=== PATIENT | female | born 2005 | race Hispanic/Latino ===

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

== ENCOUNTER 2024-01-31 01:27 | Inpatient (IN) | payer SELFPAY ==
[2024-01-31] VITALS (56 sets, daily range): BP systolic 90–135; BP diastolic 45–82; PULSE 84–144; RESP 13–28; TEMP 98.2–100.6; O2SAT 99–100
[~2024-01-31] VITALS: Ht 147.3 cm; Wt 60.8 kg
[2024-01-31 02:29] LABS: APPEARANCE,URINE CLEAR (CLEAR); BILIRUBIN,URINE NEGATIVE (NEGATIVE); COLOR,URINE YELLOW (YELLOW); GLUCOSE, URINE (UA) NEGATIVE (NEGATIVE); KETONES,URINE NEGATIVE (NEGATIVE); LEUKOCYTE ESTERASE ,URINE NEGATIVE Leu/uL (NEGATIVE); NITRATE,URINE NEGATIVE (NEGATIVE); OCCULT BLOOD,URINE NEGATIVE (NEGATIVE); PH,URINE 6.5 (5.0-8.0); PROTEIN,URINE 30 mg/dL (NEGATIVE); UROBILINOGEN,URINE >=8.0 mg/dL (0.2-1.0)
[2024-01-31 02:38] LABS: ADD UA MICROSCOPIC YES
[2024-01-31 02:39] LABS: AMPHET/METH SCREEN,URINE NEGATIVE (NEGATIVE); BARBITURATE SCREEN, URINE NEGATIVE (NEGATIVE); BENZODIAZEPINES SCREEN,URINE NEGATIVE (NEGATIVE); CANNABINOID SCREEN,URINE NEGATIVE (NEGATIVE); COCAINE SCREEN,URINE NEGATIVE (NEGATIVE); OPIATE SCREEN,URINE NEGATIVE (NEGATIVE); PHENCYCLIDINE SCREEN,URINE NEGATIVE (NEGATIVE)
[2024-01-31 02:44] LABS: MUCUS,URINE RARE LPF (None Seen); SQUAMOUS EPITHELIAL CELL,UR MOD /HPF (0-2)
[2024-01-31] MEDS: CELESTONE SOLUSPAN 6 MG/ML 5ML VIAL IM SCH (02:59)
[2024-01-31] MEDS: LACTATED RINGERS 1000ML IV PRN (04:31)
[2024-01-31] MEDS: cefTRIAXone 1G VIAL IVPB ONE (08:58)
[2024-01-31] MEDS ORDERED: AMPICILLIN 2GM+NS 100ML 100 ML IV ONE (09:30)
[2024-01-31] MEDS: DiphenhydrAMINE HCL 50 MG/ML VIAL ONE (09:39)
--- NOTE | 2024-01-31 09:42 | NUR ---
SOB COMPLAINT PT COMPLAINING OF SOB. SPO2 AT 98%. LABOR BREATHING NOTED. NONREBREATHER APPLIED TO PATIENT. HEAD OF BED ELEVATED.
--- NOTE | 2024-01-31 09:43 | NUR ---
RAPID RESPONSE CODE WAS CALLED PT COMPLAINING OF SOB AND UNABLE TO SWALLOW. LABORED BREATHING NOTED. LUNG WERE CLEAR. TONGUE DEPRESSOR USED TO CHECK THROAT. NO SWELLING TO THROAT NOTED.
--- NOTE | 2024-01-31 09:44 | NUR ---
RAPID RESPONSE TEAM ARRIVED REPORT GIVEN TO FRANK JOHNSON MARIA, RN - ENGINEERING JOB TITLES, JUAN RN - TECHNICAL DESIGNER, UYEN, RN - OR NURSE.
--- NOTE | 2024-01-31 09:44 | NUR ---
DR. CAITLYN HERNANDEZ MD WAS NOTIFIED BY RE CHERRY AND INFORMED OF PT CONDITION AND CODE. GAVE ORDERS TO RE CHERRY FOR BENADRYL 50MG IVP X1 AND DEXAMETHOSONE 4MG X1 DOSE.
--- NOTE | 2024-01-31 09:44 | NUR ---
BREATHING TREATMENT TREATMENT GIVEN BY FRANK JOHNSON. SEE EMAR
[2024-01-31] MEDS: dexaMETHasone SOD PHOSPHATE 4 MG/ML 1ML VIAL ONE (09:49)
--- NOTE | 2024-01-31 10:00 | NUR ---
PSYCHIATRIC SECRETARY STARTED PT CONNECTED TO PSYCHIATRIC SECRETARY BY BRENNON MARTINEZ - MORTGAGE LOAN FUNDER
[2024-01-31 10:04] LABS: BASOPHILS # (AUTO) 0.01 K/uL (0.00-0.20); BASOPHILS % (AUTO) 0.1 % (0.0-5.0); HEMATOCRIT 31.7 % (36-48); IMMATURE GRANULOCYTE ABSOLUTE 0.08 K/uL (0-1); LYMPHOCYTES # (AUTO) 0.9 K/uL (1.0-4.8); LYMPHOCYTES % (AUTO) 7.4 % (21.0-51.0); MEAN CORPUSCULAR HEMOGLOBIN 29.3 pg (27.0-33.0); MEAN CORPUSCULAR HGB CONC 33.1 g/dL (32.0-36.0); MEAN CORPUSCULAR VOLUME 88.5 fL (80-100); MONOCYTES # (AUTO) 0.2 K/uL (0.1-1.0); MONOCYTES % (AUTO) 1.5 % (3.0-13.0); NEUTROPHILS # (AUTO) 10.4 K/uL (1.8-7.7); NEUTROPHILS % (AUTO) 90.3 % (40.0-77.0); PLATELET COUNT (AUTO) 212 K/uL (130-400); RED BLOOD CELL COUNT(AUTO) 3.58 MIL/uL (4.00-5.50); RED CELL DISTRIBUTION WIDTH 13.2 % (11.0-15.5); WHITE BLOOD COUNT (AUTO) 11.6 K/uL (4.8-10.8)
--- NOTE | 2024-01-31 10:06 | NUR ---
EKG ORDERED AND COMPLETED BY RAPID RESPONSE GARMENT MANUFACTURING SUPERVISOR. NORMAL SINUS RHYTHM REPORTED
--- NOTE | 2024-01-31 10:07 | NUR ---
DR. BRADY CALLED MD WAS [facility] PT DID NOT GET ANY RELIEF TO CHIEF COMPLAINT. [facility] MD FHT STABLE WITH MODERATE VARIABILITY AND PT STILL STEPHANIE. ASKED MD IF HE COULD COME IN TO SEE PT. GAVE ORDERS FOR HOSPITALIST CONSULT. DR. BRADY [facility] HE WOULD STOP BY LATER TODAY TO SEE THE PT. BENJAMIN, RN - ECONOMICS PROFESSOR NOTIFIED OF CONSULT REQUEST AND SHE CALLED HOSPITALIST NECK FITTER.
--- NOTE | 2024-01-31 10:10 | NUR ---
DR. Jasper RAVI IN ROOM PROVIDED REPORT TO MD ON PT CURRENT STATUS AND LAST MEDICATIONS GIVEN. HE GAVE ORDERS FOR NS BOLUS 1L AND CRITICAL CARE TEAM CONSULT.
--- NOTE | 2024-01-31 10:11 | EKG ---
[facility] Test Date: 2024-01-31 Test Time: 10:08:37 Pat Name: LAUREL OLIVA Department: [facility] Room: 208 Gender: F Delivery Route Driver: [id number] : 2005 Requested By: KARY BRADY Order Number: [id number] Reading MD: Stacy Lewis Measurements Intervals [place] Rate: 132 P: 51 MA: 108 QRS: 16 QRSD: 70 T: 26 QT: 301 QTc: 448 Interpretive Statements Sinus tachycardia Nonspecific T abnormalities, anterior leads No previous ECG available for comparison Electronically Signed On 01-31-2024 17:35:19 INSPECTION CLERK by Stacy Lewis Please click the below link to view image of tracing.
--- NOTE | 2024-01-31 10:16 | NUR ---
CHEST XRAY ORDERED BY DR. RAVI. MD GAVE ORDERS FOR SOLUMEDROL 125MG IV X1 DOSE. ORDERS CONFIRMED AND ENTERED
--- NOTE | 2024-01-31 10:18 | NUR ---
Elizabeth CARDENAS, ICU SETUP OPERATOR ARRIVED TO UNIT SETUP OPERATOR WAS INFORMED OF PT STATUS AND CHEIF COMPLAINT.
[2024-01-31 10:19] LABS: INR <= 0.93 (0.85-1.15); PROTHROMBIN TIME 9.7 SEC (9.6-11.6)
[2024-01-31 10:20] LABS: PARTIAL THROMBOPLASTIN TIME 25.6 SEC (26.3-35.5)
--- NOTE | 2024-01-31 10:23 | NUR ---
PEPCID ORDERED DR. RAVI GAVE ORDERS FOR PEPCID 40MG IVP X1 DOSE. ORDERS CONFIRMED AND ENTERED.
--- NOTE | 2024-01-31 10:25 | NUR ---
SOLUMEDROL 125MG IVP GIVEN BY BRENNON MARTINEZ HIGH SCHOOL TEACHER ORDERED BY
--- NOTE | 2024-01-31 10:25 | NUR ---
PEPCID 40MG IVP GIVEN BY Tamie MEIER RN. PT TOLERATED MEDICATION
[2024-01-31] MEDS ORDERED: 0.9%NACL 1000ML 1,000 ML IV SCH ×2 (10:27→10:30)
[2024-01-31 10:33] LABS: ABG BASE EXCESS -5.3 mmol/L (-2.0-3.0); ABG HCO3 18.8 mmol/L (21.0-28.0); ABG OXYGEN SATURATION 95.3 % (94.0-98.0); ABG PCO2 32 mmHg (32-45); ABG PH 7.386 (7.350-7.450); CARBON MONOXIDE 0.3 % (0.5-1.5); HHb 4.7; PO2, ARTERIAL BG 80.8 mmHg (83.0-108.0); VENT MODE, BG NRM (ROOM AIR)
[2024-01-31 10:38] LABS: CREATININE 0.5 mg/dL (0.5-1.0); POTASSIUM 4.3 mmol/L (3.5-5.1)
[2024-01-31] MEDS: RACEPINEPHRINE HCL 2.25% 0.5 ML NEB SOLN ONE (10:40)
--- NOTE | 2024-01-31 10:42 | CONS ---
[facility] CONSULTATION NOTE Date Patient Seen: Jan 31, 2024 Time of Visit: 10:42 Supervising Physician: Alexander Gabriel MD Reason for Consultation: critical care management , allergic reaction Primary Care Physician: Tato Chu MD Outpatient Specialists: Krysta Baird MD Inpatient Consults: Misbah Brady MD , Gadiel Maurer BIS. Dr Handy PROBLEM LIST: Severe sepsis, POA Acute hypoxemic respiratory failure, not POA Severe allergic reaction to Rocephin with concerns for impending anaphylaxis, not POA Lactic acidosis, POA Urinary tract infection, POA Active at 35 weeks, POA Leukocytosis, POA Normocytic anemia, POA HPI: This is a 18-year-old female 1, currently 35 weeks admitted into L and D for evaluation of lower abdominal pain. She has been seen by Obstetrics Service who is primary. Rapid response was called earlier this morning for respiratory distress after completing administration of Rocephin1 g IV. As per primary L&D RN patient was admitted overnight for reports of dysuria, lower abdominal pain frequent urinations and concerns of urinary tract infection. She received her dose of Rocephin1 g IV Alicia morning and became tachypneic and tachycardic. Patient reported and H in the back of her throat and having trouble breathing. She received a dose of racemic epinephrine nebulizer,4 mg of dexamethasone, 50 mg IM Benadryl, a L of LR. We were consulted for critical care management by catalyst team. On assessment of patient she was slightly Heparin ventilating on non-rebreather mask at 100%, tachycardic slightly anxious. No stridor auscultated to upper airway, no wheezing noted to all lobes bilaterally. Patient with no apparent rash, dips swelling or eyelid swelling. In mouth inspection Mallampati of III, but no obvious tongue swelling. Patient reports some shortness of breath, sinus tachycardia in the 120s, heart rate 132 on toco monitor. Patient is Saturating 99-100% mild respiratory distress noted. WBCs this morning were remarkable for white count of 11.6 with neutrophils of 90.3 H&H is 10.5/31.7 ESR is 45. Chemistry unremarkable, [id number] mg/dL alkaline [id number] albumin 2.8 Procalcitonin less than 0.05. On chest x-ray prominent interstitial markings are seen with possible superimposed infiltrates. Pending 2D echo and bilateral lower extremity venous Doppler. PAST MEDICAL HX: None [id number] weeks PAST SURGICAL HX: noncontributory SOCIAL HISTORY: No tobacco, ETOH, or illicit drug use Coded Allergies: Cephalosporins (Verified Allergy, Severe, 01/31/24) Penicillins (Verified Adverse Reaction, Severe, 01/31/24) REVIEW OF SYSTEMS: Const: Yes for subjective fevers, fatigue, weight gain due to Eyes:[ no recent vision problems] ENT: Yes for sore throat, no congestion or ear pain C/V: [no chest pain, palpitations or edema] Resp: Yes for shortness of breath, no cough no wheezing GI: Reports lower abdominal pain, no nausea vomiting or diarrhea : Reports dysuria and urinary urgency and frequency M/S: [No joint or pain swelling] Skin: [No rash] Neuro: [no headache, focal numbness, or weakness, dizziness or seizures] Psych: [no depression or anxiety] Heme: [no abnormal bruising or bleeding] Lymph: [no swollen glands] PHYSICAL EXAM: GENERAL: alert, weak, awake oriented x 3 HEENT: EOMI, Sclera non icteric, moist mucosa NECK: Supple, no JVD, trachea midline LUNGS: Diminished breath sounds bilaterally. No wheezes, no stridor auscultated to upper airway HEART: Irregular Tachycardic rate and rhythm. Normal S1 and S2, without murmurs ABD: Abdomen soft, nontender. Bowel sounds present,35 weeks EXT: No clubbing cyanosis or edema NEURO: Alert and oriented to person, follows commands Vital Signs (last 8hr) Date Time Temp Pulse Resp B/P (MAP) Pulse Ox O2 Delivery O2 Flow Rate FiO2 01/31/24 09:53 144 18 LABS: Hematology Labs: Test 01/31/24 09:52 Range/Units White Blood Count 11.6 H 4.8-10.8 K/uL Red Blood Count 3.58 L 4.00-5.50 MIL/uL Hemoglobin 10.5 L 12.0-16.0 g/dL Hematocrit 31.7 L 36-48 % Mean Corpuscular Volume 88.5 80-100 fL Mean Corpuscular Hemoglobin 29.3 27.0-33.0 pg Mean Corpuscular Hemoglobin Concent 33.1 32.0-36.0 g/dL Red Cell Distribution Width 13.2 11.0-15.5 % Platelet Count 212 130-400 K/uL Mean Platelet Volume 10.9 H 7.5-10.5 fL Immature Granulocyte % (Auto) 0.7 0-1 % Neutrophils (%) (Auto) 90.3 H 40.0-77.0 % Lymphocytes (%) (Auto) 7.4 L 21.0-51.0 % Monocytes (%) (Auto) 1.5 L 3.0-13.0 % Eosinophils (%) (Auto) 0.0 0.0-8.0 % Basophils (%) (Auto) 0.1 0.0-5.0 % Neutrophils # (Auto) 10.4 H 1.8-7.7 K/uL Lymphocytes # (Auto) 0.9 L 1.0-4.8 K/uL Monocytes # (Auto) 0.2 0.1-1.0 K/uL Eosinophils # (Auto) 0.00 0.00-0.70 K/uL Basophils # (Auto) 0.01 0.00-0.20 K/uL Absolute Immature Granulocyte (auto 0.08 0-1 K/uL Nucleated Red Blood Cells 0.0 0.0-0.19 % White Cell Morphology Comment See comments Chemistry Labs: Test 01/31/24 09:52 Range/Units Sodium Level 137 136-145 mmol/L Potassium Level 4.3 3.5-5.1 mmol/L Chloride Level 102 101-111 mmol/L Carbon Dioxide Level 22 21-32 mmol/L Blood Urea Nitrogen 7 7-18 mg/dL Creatinine 0.5 0.5-1.0 mg/dL Glomerular Filtration Rate Calc 138 >90 mL/min Random Glucose 112 H 70-105 mg/dL Lactic Acid Level 2.5 0.8-2.5 mmol/L Total Calcium 9.5 8.5-10.1 mg/dL Coagulation Labs: Test 01/31/24 09:52 Range/Units Prothrombin Time 9.7 9.6-11.6 SEC Prothromb Time International Ratio <= 0.93 0.85-1.15 Activated Partial Thromboplast Time 25.6 L 26.3-35.5 SEC DIAGNOSTICS / RADIOLOGY RESULTS: IMAGING REPORT Signed PATIENT: LAUREL OLIVA MR#: [id number] : 2005 SEX: F AGE: 18 LOCATION: 2BH ORDER 1002 STATUS: ADM IN REPORT#: [id number] SERVICE 1000 REASON: SOB, TACHYCARDIA ORDERING PHYSICIAN: KRAY BRADY MD PROCEDURE: CXR1VW - CHEST 1VW CHEST 1VW HISTORY: Shortness of breath, tachycardia COMPARISON: None FINDINGS: A frontal projection of the chest was obtained. Prominent interstitial markings are seen with possible superimposed infiltrates. The heart is normal in size. Mild degenerative changes are seen. No evidence of aortic calcification is seen. IMPRESSION: 1. Prominent interstitial markings are seen with possible superimposed infiltrates. DICTATED BY: TONY CAUSEY MD DATE: 01/31/24 132 ELECTRONICALLY SIGNED BY: TONY CAUSEY MD DATE: 01/31/24 1328 PLAN Continurous monitoring with LnD nurse at bedside per OB NEURO: Minimize central acting medications as possible. Fall Precautions. Well lighted room through the day and minimize interruptions through the night to prevent acute delirium. PULMONARY: Supplemental 02 as needed Titrate Fio2 to keep Spo2 > or = 92% DuoNebs and CPT as needed IS hourly while awake for pulmonary hygiene Out of bed to chair as tolerated VAP Bundle Wean O2 and maintain O2 sats above 92% CARDIOVASCULAR: Follow hemodynamics. Titrate vasopressor to keep MAP >65 or systolic blood pressure >95mmHg ICU continuous cardiac monitoring Drips: Isotonic fluids 30 mL/kilogram x1 LINES: PIV GI & NUTRITION: Continue nutritional support Aspirations precautions Prokinetic agents and laxatives as needed KIDNEYS & ELECTROLYTES: Strict monitoring of intake and output Daily weights Avoid nephrotoxic agents Monitor electrolytes and replace as needed Goal urine output of 30mL/hr or 0.5mL/kg/hr Urine output: [ ] Fluid Balance: [ ] ENDOCRINE: Maintain blood glucose between 100-180 at all times. Insulin sliding scale for blood glucose management INFECTIOUS DISEASE: Trend temperature. Cota-culture if febrile. Micro: [ ] Blood cultures Urine cultures COVID and influenza swab Strep throat swab Chlamydia and gonorrhea urine- Antibiotics: Discontinue Rocephin NS an allergy for cephalosporins Levaquin Aztreonam Per ID HEMATOLOGY & COAGULATION: Monitor H&H. Keep Hgb > 7 Transfuse 1 unit of PRBC for Hgb < 7 Transfuse 1 pack of platelets of platelets < 20, 000 Watch for any signs and symptoms of bleeding SKIN: Pressure ulcer prevention per facility protocol Rehab: PT/OT Prophylaxis: GI: Pepcid DVT: SCDs Code Status: Full Resuscitation Disposition: ICU Other: Total patient care time exceeds 50 minutes excluding all procedures. Case was discussed and seen with my supervising physician. The above plan was formulated and agreed upon. CARMEN CARDENAS [facility] Jan 31, 2024 10:42
[2024-01-31 10:43] LABS: ALBUMIN 2.8 g/dL (3.5-5.0); BILIRUBIN,TOTAL 0.3 mg/dL (0.2-1.0); URIC ACID 4.3 mg/dL (2.6-7.2)
[2024-01-31 10:54] LABS: HIV 1&2 ANTIBODY Non-Reactive (Negative); HIV-1 p24 Antigen Non-Reactive (Negative)
[2024-01-31] MEDS: 0.9%NACL 1000ML 1,000 ML IV SCH (11:00)
[2024-01-31] MEDS ORDERED: IpraTROPium/alBUTERol SULFATE 3 ML SOLUTION IH PRN (11:00)
[2024-01-31] MEDS ORDERED: acetaMINOPHEN 325 MG TAB PO PRN (11:00)
[2024-01-31 11:04] LABS: B-TYPE NATRIURETIC PEPTIDE 18 pg/mL (0-100)
--- NOTE | 2024-01-31 11:04 | NUR ---
TRANSFER TO ICU PT TRANSFERRED TO ICU VIA BED IN STABLE CONDITION.
--- NOTE | 2024-01-31 11:08 | NUR ---
PT ARRIVED TO ICU ROOM 208 IN STABLE CONDITION. REPORT GIVEN TO BRENNON HOWARD. PT CONNECTED TO MONITOR.
--- NOTE | 2024-01-31 11:10 | NUR ---
pt arrived to icu, with LD nurse at bedside, FHM at bedside and placed on pt with heat beat audible. pt arousable to voice, following commands, nods yes to her throat feeling better. received bedside report from nurse annmarie rn. pt running NS bolus via left wrist IV. technology advisor at bedside. v/s stable, NRB mask at 15 lpm.
[2024-01-31] MEDS: Solu-medROL 125MG VIAL IVP ONE (11:27)
[2024-01-31] MEDS: LACTATED RINGERS IV ONE (11:27)
[2024-01-31] MEDS: FAMOTIDINE 20MG VIAL IV ONE ×3 (11:27)
--- NOTE | 2024-01-31 11:32 | NUR ---
DR. BRADY WAS NOTIFIED PT WAS TRANSFERRED TO ICU
[2024-01-31 11:36] LABS: FIBRINOGEN 524 mg/dL (180-350)
[2024-01-31 11:46] LABS: ERYTHROCYTE SEDIMENTATION RATE 45 MM/HR (0-20)
--- NOTE | 2024-01-31 12:01 | CONS ---
[facility] CONSULTATION NOTE Date of Service: Jan 31, 2024 Reason for Consultation: [ respiratory distress, rapid response ] Requesting Physician: [Dr. Soria ] HISTORY OF PRESENT ILLNESS: Date of service: 01/31/2024 18 year old female who is currently 35 weeks currently admitted in labor and delivery for evaluation of contractions. Patient is being followed by obstetric service who is the primary service for this patient. I was called to evaluate this patient emergently for a rapid response was called on this patient due to severe respiratory distress. Patient was admitted overnight was reporting having dysuria, frequent urinary urgency with concerns for developing urinary tract infection. Patient received a dose of 1 g of IV Rocephin close to 9:00 a.m. and per nursing, patient developed severe respiratory distress with tachypnea. Nursing staff at bedside, denies any rash, diarrhea, stridor or wheezing. Per nursing, there is no significant lip swelling or tongue swelling noted. Patient reports having hard time breathing and appears very labored. Patient already received a dose of racemic epinephrine, 4 mg of dexamethasone, 50 mg of intramuscular Benadryl, 500 bolus of lactated Ringer's prior to my evaluation. Given concerns for severe allergic reaction, I placed bedside orders for patient to be given Solu-Medrol 125 mg and there is concerns that patient may develop into anaphylaxis reaction soon, we will monitor closely for intramuscular epinephrine to be given in case of nonresolving symptoms. Patient will be transferred to ICU for closer monitoring for at least 24 hours. Lactic acid is also noted to be elevated, patient may be developing possible sepsis as well. Discussed with Infectious Disease, with Dr. Handy, we will start this patient on combination IV aztreonam/Levaquin. REVIEW OF SYSTEMS: Thorough review of system could not be elicited due to labored breathing, patient reports having acute shortness of breath with no associated wheezing, rhonchi, stridor. Denies chest pain or focal neurologic symptoms. PAST MEDICAL HISTORY: Active intrauterine at 35 weeks PAST SURGICAL HISTORY: Denies previous surgical history PAST SOCIAL HISTORY: Independent with ADLs and IADLs FAMILY HISTORY: Denies pertinent family history Allergies: Allergies have been updated to include cephalosporins and penicillin Coded Allergies: Cephalosporins (Verified Allergy, Severe, 01/31/24) Penicillins (Verified Adverse Reaction, Severe, 01/31/24) PHYSICAL EXAM GENERAL APPEARANCE: The patient is awake, patient is tachypneic and is in moderate respiratory distress. No obvious skin rash noted NEUROLOGICAL: Cranial nerves II-XII grossly intact. Motor is 5/5 in bilateral upper and lower extremities proximal to distal. No sensory deficits. HEENT: Face is symmetric. Pupils are equal and reactive. Extraocular movements are intact. NECK: Supple. No JVD. No thyromegaly. No submental, submandibular, pre-/post auricular, occipital or supraclavicular lymphadenopathy. CHEST: Normal chest expansion. No Telemetry. LUNGS: Absence of any rales, rhonchi or any wheezing. No stridor CARDIOVASCULAR: Regular. S1 and S2 normal. tachycardic with heart rate in the 120's ABDOMEN: Soft, nontender, and nondistended. There is no rebound, voluntary guarding, or rigidity. : Deferred. No Acevedo. EXTREMITIES: Non-edematous and not cyanotic. No clubbing. Good capillary refill. SKIN: No skin breakdown. Vital Sign (Last 24 Hours) 01/31/24 01/31/24 01/31/24 01:32 09:45 09:53 Temp 97.2 Pulse 144 Resp 18 B/P (MAP) 109/59 Pulse Ox 99 O2 Delivery Non Rebreather FiO2 100 LABS: Laboratory: Test 01/31/24 10:34 01/31/24 10:31 01/31/24 09:52 01/31/24 02:00 Range/Units Erythrocyte Sedimentation Rate 45 H 0-20 MM/HR B-Type Natriuretic Peptide 18 0-100 pg/mL Blood Gas Specimen Type Arterial Arterial Blood pH 7.386 7.350-7.450 Arterial Blood Partial Pressure CO2 32 32-45 mmHg Arterial Blood Partial Pressure O2 80.8 L 83.0-108.0 mmHg Arterial Blood HCO3 18.8 L 21.0-28.0 mmol/L Arterial Blood Oxygen Saturation 95.3 94.0-98.0 % Arterial Blood Base Excess -5.3 L -2.0-3.0 mmol/L Hemoglobin (Blood Gas) 11.6 L 12.0-16.0 g/dL Sodium (Blood Gas) 137 136-145 MMOL/L Bedside Potassium (Blood Gas) 4.2 3.4-4.5 MMOL/L Bedside Chloride (Blood Gas) 105 98-107 MMOL/L Bedside Glucose (Blood Gas) 115 H 65-95 MG/DL Bedside Ionized Calcium (Blood Gas) 1.24 1.15-1.33 MMOL/L Bedside Lactic Acid (Blood Gas) 3.36 *H 0.36-0.75 MMOL/L Blood Gas Temperature 37.0 35.5-37.0 CELSIUS Blood Gas Flow-by 15.00 0.00-15.00 L/min Blood Gas Vent Mode NRM ROOM AIR FiO2 100.0 % Blood Gas Specimen Comment RR,CARMEN-DOBIE MAN White Blood Count 11.6 H 4.8-10.8 K/uL Red Blood Count 3.58 L 4.00-5.50 MIL/uL Hemoglobin 10.5 L 12.0-16.0 g/dL Hematocrit 31.7 L 36-48 % Mean Corpuscular Volume 88.5 80-100 fL Mean Corpuscular Hemoglobin 29.3 27.0-33.0 pg Mean Corpuscular Hemoglobin Concent 33.1 32.0-36.0 g/dL Red Cell Distribution Width 13.2 11.0-15.5 % Platelet Count 212 130-400 K/uL Mean Platelet Volume 10.9 H 7.5-10.5 fL Immature Granulocyte % (Auto) 0.7 0-1 % Neutrophils (%) (Auto) 90.3 H 40.0-77.0 % Lymphocytes (%) (Auto) 7.4 L 21.0-51.0 % Monocytes (%) (Auto) 1.5 L 3.0-13.0 % Eosinophils (%) (Auto) 0.0 0.0-8.0 % Basophils (%) (Auto) 0.1 0.0-5.0 % Neutrophils # (Auto) 10.4 H 1.8-7.7 K/uL Lymphocytes # (Auto) 0.9 L 1.0-4.8 K/uL Monocytes # (Auto) 0.2 0.1-1.0 K/uL Eosinophils # (Auto) 0.00 0.00-0.70 K/uL Basophils # (Auto) 0.01 0.00-0.20 K/uL Absolute Immature Granulocyte (auto 0.08 0-1 K/uL Nucleated Red Blood Cells 0.0 0.0-0.19 % White Cell Morphology Comment See comments Prothrombin Time 9.7 9.6-11.6 SEC Prothromb Time International Ratio <= 0.93 0.85-1.15 Activated Partial Thromboplast Time 25.6 L 26.3-35.5 SEC Fibrinogen 524 *H 180-350 mg/dL Sodium Level 137 136-145 mmol/L Potassium Level 4.3 3.5-5.1 mmol/L Chloride Level 102 101-111 mmol/L Carbon Dioxide Level 22 21-32 mmol/L Blood Urea Nitrogen 7 7-18 mg/dL Creatinine 0.5 0.5-1.0 mg/dL Glomerular Filtration Rate Calc 138 >90 mL/min Random Glucose 112 H 70-105 mg/dL Lactic Acid Level 2.5 0.8-2.5 mmol/L Uric Acid 4.3 2.6-7.2 mg/dL Total Calcium 9.5 8.5-10.1 mg/dL Total Bilirubin 0.3 0.2-1.0 mg/dL Aspartate Amino Transf (AST/SGOT) 31 10-37 U/L Alanine Aminotransferase (ALT/SGPT) 28 12-78 U/L Alkaline Phosphatase 235 H 50-136 U/L Total Protein 7.0 6.0-8.3 g/dL Albumin 2.8 L 3.5-5.0 g/dL Procalcitonin < 0.05 L 0.05-0.5 ng/mL HIV (1&2) Antibody Non-Reactive Negative HIV P24 Antigen, Qualitative Non-Reactive Negative Urine Color YELLOW YELLOW Urine Appearance CLEAR CLEAR Urine pH 6.5 5.0-8.0 Urine Specific [place] 1.029 1.001-1.031 Urine Protein 30 H NEGATIVE mg/dL Urine Glucose (UA) NEGATIVE NEGATIVE mg/dL Urine Ketones NEGATIVE NEGATIVE mg/dL Urine Occult Blood NEGATIVE NEGATIVE Urine Nitrate NEGATIVE NEGATIVE Urine Bilirubin NEGATIVE NEGATIVE mg/dL Urine Urobilinogen >=8.0 H 0.2-1.0 mg/dL Urine Leukocyte Esterase NEGATIVE NEGATIVE Chin/uL Urine RBC 2-5 H 0-1 /HPF Urine WBC 2-5 H 0-1 /HPF Urine Squamous Epithelial Cells MOD 0-2 /HPF Urine Bacteria None None Seen /HPF Urine Opiates Screen NEGATIVE NEGATIVE Urine Barbiturates Screen NEGATIVE NEGATIVE Urine Phencyclidine Screen NEGATIVE NEGATIVE Urine Amphetamines Screen NEGATIVE NEGATIVE Urine Benzodiazepines Screen NEGATIVE NEGATIVE Urine Cocaine Screen NEGATIVE NEGATIVE Urine Marijuana (THC) Screen NEGATIVE NEGATIVE DIAGNOSTICS / RADIOLOGY: Chest x-ray at bedside shows no focal infiltrates ASSESSMENT: Acute hypoxemic respiratory failure, not POA Severe allergic reaction to Rocephin with concerns for impending anaphylaxis, not POA Lactic acidosis, POA Urinary tract infection, POA Concerns for developing sepsis from UTI, POA Active at 35 weeks, POA Leukocytosis, POA Normocytic anemia, POA PLAN: Patient will be transferred to ICU Patient initially received bolus of IV fluids, dexamethasone, Benadryl, and racemic epinephrine with no significant improvement of symptoms and significant respiratory distress. After receiving IV Solu-Medrol and IV Pepcid, breathing has improved significantly, no significant stridor or wheezing or urticarial rash noted for this patient and patient feels much better Patient will receive sepsis bolus of fluids with LR and maintenance IV fluids of normal saline Discussed with Infectious Disease, Dr. Handy and pharmacy, given concerns of developing UTI, we will start patient on Levaquin/aztreonam Monitor lactic acid trend closely Chest x-ray shows no focal infiltrates, we will follow up urine culture, and blood culture Monitor if patient closely in telemetry today, continue with close monitoring, continue with obstetric care by primary obstetric service Appreciate assistance of critical care on this patient All labs will be repeated in the morning, we will follow up 2D echocardiogram and venous ultrasound DVT prophylaxis with SCDs, continue GI prophylaxis with Pepcid Critical care minutes: 45 minutes Plan of care was discussed with patient at bedside, YULY Turk MD, MD Jan 31, 2024 12:01
[2024-01-31 12:09] LABS: HEMOGLOBIN A1C 5.9 % (4.0-6.0)
--- NOTE | 2024-01-31 13:28 | HMCIMG ---
CHEST 1VW HISTORY: Shortness of breath, tachycardia COMPARISON: None FINDINGS: A frontal projection of the chest was obtained. Prominent interstitial markings are seen with possible superimposed infiltrates. The heart is normal in size. Mild degenerative changes are seen. No evidence of aortic calcification is seen. IMPRESSION: 1. Prominent interstitial markings are seen with possible superimposed infiltrates.
[2024-01-31 13:30] LABS: MAGNESIUM 1.6 mg/dL (1.80-2.40); THYROID STIMULATING HORMONE 0.78 uIU/mL (0.36-3.74)
[2024-01-31] MEDS ORDERED: AMPICILLIN 1GM+NS 50ML 50 ML IV SCH (13:30)
[2024-01-31] MEDS: SODIUM CHLORIDE 3% FOR INHALATION 4 ML/AMP VIAL.NEB IH ONE (14:29)
[2024-01-31] MEDS: AZTREONAM 2 GM VIAL IVPB SCH ×2 (15:21→20:48)
[2024-01-31 15:29] LABS: COVID19 (SARS ANTIGEN RAPID) PRESUMPTIVE NEGATIVE (NEGATIVE)
[2024-01-31 15:31] LABS: INFLUENZA TYPE A Negative For Type A (NEGATIVE); INFLUENZA TYPE B Negative For Type B (NEGATIVE)
[2024-01-31 15:55] LABS: RAPID GROUP A STREP positive (NEGATIVE)
[2024-01-31] MEDS: MAGNESIUM 2GM PREMIX 50ML 50 ML IV PRN (16:48)
--- NOTE | 2024-01-31 17:15 | NUR ---
CERVICAL EXAM //-3 PT CONSENTED TO SVE EXAM. PT INFORMED OF SVE FINDINGS.
--- NOTE | 2024-01-31 17:21 | NUR ---
DR. CAITLYN HERNANDEZ MD WAS INFORMED OF PT CURRENT STATUS, LAST SVE AND CURRENT ANTIBIOTICS ORDERED BY THE CRITICAL CARE TEAM AND INFECTIOUS DISEASE MD. MD GAVE ORDERS TO ENSURE PT IS NOT RECEIVING ANY QUINOLONES OR TETRACYCLINES THEY ARE CONTRAINDICATED IN . ADVS OF LEVAQUIN 750MG ORDERED FOR TOMORROW. MD GAVE ORDERS TO STOP ORDER IMMEDIATELY. MD GAVE ORDERS FOR ANOTHER DOSE OF CELESTONE 12MG IM TONIGHT AT 0300. CONTINUOUS MONITORING TO CONTINUE TONIGHT. ORDERS CONFIRMED AND ENTERED.
--- NOTE | 2024-01-31 17:47 | HMCSR ---
APPROVED REPORT EXAM: Two-dimensional and M-mode echocardiogram with Doppler and color Doppler. INDICATION ICD: Rule out induced cardiomyopathy 2D Dimensions RVDd4.2 cmLVEF(%)59.0 (>50%)LVED Vol(simp.)98.9 mL IVSd0.7 (0.7-1.1cm)FS(%)31 %LVES Vol(simp.)30.9 mL LVDd3.9 (3.8-5.6cm)LA (2D)3.2 (1.6-4.0cm)LVEF(%, simp.)69 % PWd0.9 (0.7-1.1cm)Ao Root(2D)2.3 (2.0-3.7cm) IVSs1.1 cmLVOT diam1.8 (1.8-2.4cm) LVDs2.7 (2.5-4.0cm) PWs1.4 cm Deformation Strain Apical 429.0 % Apical 226.0 % Apical 322.0 % Global Wfhcqo23.0 % M-Mode Dimensions EPSS0.6 cm LA (MM)3.2 (1.6-4.0cm) Ao Root(MM)2.2 (2.0-3.7cm) Aortic Valve AoV VTI0.4 mAo Mean GR7.0 mmHgLVOT VTI0.28 m ELIZABETH (VMAX)2.0 cm2AVA (VTI) 2.0 cm2 Mitral Valve MV E Iedz882.7 cm/sDECEL Wxdy753 ms MV A Vmax73.2 cm/sP 1/2 T66 ms E/A ratio1.7MVA (PHT)3.3 cm2 TDI E/E' Igyjvs25.8E/E' Lateral9.6 Medial E' Peak V8.90 cm/sLateral E' Peak V12.80 cm/s Tricuspid Valve TR Vmax2.9 m/sRAP (EST) 8 zpWgLEBJ82.1 mmHg TR Peak GR34.1 mmHg Left Ventricle The left ventricle structure and function is normal. There is normal left ventricular wall thickness. LVEF is 55-60%. The left ventricular diastolic function is normal. Right Ventricle The right ventricle is normal size. The right ventricular systolic function is normal. Atria The left atrium size is normal. The right atrium size is normal. Aortic Valve The aortic valve is normal in structure and function. No aortic regurgitation is present. There is no aortic valvular stenosis. Mitral Valve The mitral valve is normal in structure and function. There is no mitral valve regurgitation noted. T here is no mitral valve stenosis. Tricuspid Valve The tricuspid valve is normal in structure and function. There is mild tricuspid valve regurgitation noted. Pulmonic Valve The pulmonary valve is normal in structure and function. There is trivial pulmonic valvular regurgita tion. Great Vessels The aortic root is normal in size. IVC is not visualized. Pericardium No pericardial effusion. Other Information Quality : Excellent Conclusion The left ventricle structure and function is normal. LVEF is 55-60%. The left ventricular diastolic function is normal. The right ventricle is normal size. The right ventricular systolic function is normal. The left atrium size is normal. The right atrium size is normal. There is mild tricuspid valve regurgitation noted. No pericardial effusion.
--- NOTE | 2024-01-31 18:21 | HMCIMG ---
US VENOUS DOPPLER BILATERAL HISTORY: DVT COMPARISON: None TECHNIQUE: Bilateral lower extremity venous Doppler ultrasound study was performed. FINDINGS: The common femoral, femoral, popliteal, and posterior tibial veins are visualized. Normal flow with augmentation and compressibilities are demonstrated. The greater saphenous veins are also seen and grossly patent. IMPRESSION: 1. No evidence of deep venous thrombosis is seen.
--- NOTE | 2024-01-31 19:18 | NUR ---
REPORT TO Salvador SOTELO RN
--- NOTE | 2024-01-31 20:22 | NUR ---
1945- PATIENT HAVING EPISODES OF SINUS TACHY IN THE 140s CONTRACTIONS 1-3 MINUTES APART - LABOR AND DELIVERY NURSE AT BEDSIDE MONITORING HEART RATE AND MEASURING DILATION - PT IN ICU DUE TO ANAPHYLACTIC REACTION TO ROCEPHIN THAT WAS GIVEN IN LABOR AND DELIVERY UNIT FOR UTI - RESPIRATIONS EVEN AND UNLABORED NO DISTRESSED - 2 LITER NC TOLERATED WELL ABOVE 95%- PAIN IS REPORTED AT 7 FROM SCALE OF 1-10 - SALAS RN OFFERED PAIN MED REFUSED PT SCARED TO TAKE MEDICATIONS - DILATION IS INCREASED VERY LITTLE CHANGED, REPORTED FINDINGS BABY HAS BEEN STABLE PER MONITOR, NEW ORDER FROM TRANSFER TO LABOR AND DELIVERY FOR MAGNESIUM IV THERAPY. NOTED - PATIENT AND FAMILY - ULTRASOUND TO DETERMINE NEXT ORDERS.
[2024-01-31] MEDS ORDERED: MEPERIDINE-PF 50 MG/ML SYG IVP PRN (20:30)
[2024-01-31] MEDS ORDERED: PROMETHAZINE HCL 25 MG/ML 1ML AMPULE IM PRN (20:30)
--- NOTE | 2024-01-31 20:38 | NUR ---
VS STABLE - WILL TRANSFER TO L AND D WHEN ROOM AVAILABLE - OKAY TO GIVE ABT AZTREONAM - NO ANAPHYLACTIC REACTION AT THIS TIME - CLEAR LUNGS, SORE THROAT BUT NO ITCHINESS, NO RASH NOTED - DENIES SOB, NO CHEST TIGHTNESS OR NARROW / SWELLING OF THROAT. NO HIVES NOTED, TACHYCARDIA DUE TO LABOR CONTRACTIONS RELATED, NO NAUSEA AND VOMITING. ALERT AND ORIENTED.
--- NOTE | 2024-01-31 20:53 | NUR ---
TRANSFERRING TO L&D ROOM 105
[2024-01-31] MEDS ORDERED: CALCIUM GLUC 1GM/10ML VIAL IV PRN (21:00)
[2024-01-31] MEDS: MAGNESIUM 4GM PREMIX 100ML 100 ML IV SCH (21:09)
[2024-01-31] MEDS: MAGNESIUM SULFATE 40GM/1000ML 1,000 ML IV PRN (21:30)
[2024-01-31] MEDS: CLINDAMYCIN IVPB 900MG/50ML 50 ML IV SCH (21:37)
--- NOTE | 2024-01-31 22:32 | HMCIMG ---
US OB >14 WEEKS HISTORY: complete COMPARISON: None TECHNIQUE: ultrasound study was performed. FINDINGS: There is single intrauterine gestation with estimated gestational age of 34 weeks.. heart rate is 131 beats per minute. The fetus is in cephalic presentation with longitudinal lie. weight is estimated to be 2574 grams. Amniotic fluid volume is 15.2 centimeter. The placenta is located posteriorly. No evidence of placenta previa is seen. There is no evidence of nuchal cord. IMPRESSION: 1. There is single intrauterine gestation with estimated gestational age of 34 weeks. heart rate is 131 beats per minute.
[2024-02-01] MEDS: FAMOTIDINE 20MG VIAL IV SCH (00:07)
[2024-02-01] MEDS: CELESTONE SOLUSPAN 6 MG/ML 5ML VIAL IM SCH (02:32)
[2024-02-01 06:58] LABS: BASOPHILS # (AUTO) 0.01 K/uL (0.00-0.20); BASOPHILS % (AUTO) 0.1 % (0.0-5.0); EOSINOPHILS # (AUTO) 0.01 K/uL (0.00-0.70); EOSINOPHILS % (AUTO) 0.1 % (0.0-8.0); HEMATOCRIT 31.1 % (36-48); IMMATURE GRANULOCYTE ABSOLUTE 0.17 K/uL (0-1); LYMPHOCYTES # (AUTO) 0.9 K/uL (1.0-4.8); LYMPHOCYTES % (AUTO) 6.8 % (21.0-51.0); MEAN CORPUSCULAR HEMOGLOBIN 29.2 pg (27.0-33.0); MEAN CORPUSCULAR HGB CONC 32.2 g/dL (32.0-36.0); MEAN CORPUSCULAR VOLUME 90.7 fL (80-100); MONOCYTES # (AUTO) 0.6 K/uL (0.1-1.0); MONOCYTES % (AUTO) 4.2 % (3.0-13.0); NEUTROPHILS # (AUTO) 11.8 K/uL (1.8-7.7); NEUTROPHILS % (AUTO) 87.5 % (40.0-77.0); PLATELET COUNT (AUTO) 201 K/uL (130-400); RED BLOOD CELL COUNT(AUTO) 3.43 MIL/uL (4.00-5.50); RED CELL DISTRIBUTION WIDTH 13.6 % (11.0-15.5); WHITE BLOOD COUNT (AUTO) 13.5 K/uL (4.8-10.8)
[2024-02-01 07:14] LABS: ALBUMIN 2.7 g/dL (3.5-5.0); BILIRUBIN,TOTAL 0.3 mg/dL (0.2-1.0); CREATININE 0.5 mg/dL (0.5-1.0); TOTAL PROTEIN, SERUM 6.4 g/dL (6.0-8.3)
[2024-02-01 07:15] LABS: MAGNESIUM 5.5 mg/dL (1.80-2.40)
[2024-02-01] MEDS ORDERED: levoFLOXacin 750 MG/D5W 150 ML 150 ML IV SCH (09:00)
[2024-02-01] MEDS: predniSONE 20 MG TABLET PO SCH (15:07)
--- NOTE | 2024-02-01 15:23 | PN ---
[facility] PROGRESS NOTE Date Patient Seen: Feb 01, 2024 Time of Visit: 15:07 Supervising Physician: Aime Buckley MD Primary Care Physician: Tato Chu MD Outpatient Specialists: Krysta Baird MD Inpatient Consults: Misbah Soria MD , Gadiel Maurer BIS. Dr Handy PROBLEM LIST: Severe sepsis, POA Strep throat infection, POA Acute hypoxemic respiratory failure, not POA Severe allergic reaction to Rocephin with concerns for impending anaphylaxis, not POA Lactic acidosis, POA Urinary tract infection, POA Active at 35 weeks, POA Leukocytosis, POA Normocytic anemia, POA INTERVAL HISTORY: Patient has been downgraded back to unlabored and delivered. She is on of the ICU now. Patient is hemodynamically stable heart rate 100 respiratory rate of 17 saturating 99% with 2 L via nasal cannula. No fever in the last 24 hours. WBCs 13.5 H&H is 10/31.1 platelet count is 201k, neutrophils 77.5. Magnesium 5.5 per L and D nurse she is therapeutic for them. Carbon dioxide is 19 BUN 6 creatinine 0.5 GFR 138. Patient is positive for group a strep rapid. Per ID continue aztreonam. Ultrasound was negative for DVT to lower extremities. From pulmonary standpoint patient is stable at this time. We will sign off. Please reach to us should the need arise. On behalf of [facility] we are thankful for your team to let us participate in the care of this patient. We will be available if assistance in pulmonary critical care needed. REVIEW OF SYSTEMS: Const: No fevers, fatigue, yes to be in 35 weeks . Eyes:[ no recent vision problems] ENT: Yes for sore throat, no congestion or ear pain C/V: [no chest pain, palpitations or edema] Resp: No further shortness of breath, cough or wheezing. No stridor auscultated. GI: Reports lower abdominal pain, no nausea vomiting or diarrhea : Reports dysuria and urinary urgency and frequency M/S: [No joint or pain swelling] Skin: [No rash] Neuro: [no headache, focal numbness, or weakness, dizziness or seizures] Psych: [no depression or anxiety] Heme: [no abnormal bruising or bleeding] Lymph: [no swollen glands] PHYSICAL EXAM: GENERAL: alert, weak, awake oriented x 3 HEENT: EOMI, Sclera non icteric, moist mucosa NECK: Supple, no JVD, trachea midline LUNGS: Diminished breath sounds bilaterally. No wheezes, no stridor auscultated to upper airway HEART: Irregular Tachycardic rate and rhythm. Normal S1 and S2, without murmurs ABD: Abdomen soft, nontender. Bowel sounds present,35 weeks EXT: No clubbing cyanosis or edema NEURO: Alert and oriented to person, follows commands LABS: Hematology Labs: Test 02/01/24 06:49 01/31/24 10:34 01/31/24 09:52 Range/Units White Blood Count 13.5 H 4.8-10.8 K/uL Red Blood Count 3.43 L 4.00-5.50 MIL/uL Hemoglobin 10.0 L 12.0-16.0 g/dL Hematocrit 31.1 L 36-48 % Mean Corpuscular Volume 90.7 80-100 fL Mean Corpuscular Hemoglobin 29.2 27.0-33.0 pg Mean Corpuscular Hemoglobin Concent 32.2 32.0-36.0 g/dL Red Cell Distribution Width 13.6 11.0-15.5 % Platelet Count 201 130-400 K/uL Mean Platelet Volume 10.6 H 7.5-10.5 fL Immature Granulocyte % (Auto) 1.3 H 0-1 % Neutrophils (%) (Auto) 87.5 H 40.0-77.0 % Lymphocytes (%) (Auto) 6.8 L 21.0-51.0 % Monocytes (%) (Auto) 4.2 3.0-13.0 % Eosinophils (%) (Auto) 0.1 0.0-8.0 % Basophils (%) (Auto) 0.1 0.0-5.0 % Neutrophils # (Auto) 11.8 H 1.8-7.7 K/uL Lymphocytes # (Auto) 0.9 L 1.0-4.8 K/uL Monocytes # (Auto) 0.6 0.1-1.0 K/uL Eosinophils # (Auto) 0.01 0.00-0.70 K/uL Basophils # (Auto) 0.01 0.00-0.20 K/uL Absolute Immature Granulocyte (auto 0.17 0-1 K/uL Nucleated Red Blood Cells 0.0 0.0-0.19 % Erythrocyte Sedimentation Rate 45 H 0-20 MM/HR White Cell Morphology Comment See comments Chemistry Labs: Test 02/01/24 06:49 01/31/24 19:10 01/31/24 10:34 01/31/24 09:52 Range/Units Sodium Level 140 136-145 mmol/L Potassium Level 4.0 3.5-5.1 mmol/L Chloride Level 106 101-111 mmol/L Carbon Dioxide Level 19 L 21-32 mmol/L Blood Urea Nitrogen 6 L 7-18 mg/dL Creatinine 0.5 0.5-1.0 mg/dL Glomerular Filtration Rate Calc 138 >90 mL/min Random Glucose 111 H 70-105 mg/dL Total Calcium 8.2 L 8.5-10.1 mg/dL Magnesium Level 5.50 #*H 1.80-2.40 mg/dL Total Bilirubin 0.3 0.2-1.0 mg/dL Aspartate Amino Transf (AST/SGOT) 23 10-37 U/L Alanine Aminotransferase (ALT/SGPT) 22 # 12-78 U/L Alkaline Phosphatase 218 H 50-136 U/L Total Protein 6.4 6.0-8.3 g/dL Albumin 2.7 L 3.5-5.0 g/dL Lactic Acid Level 2.0 0.8-2.5 mmol/L Hemoglobin A1c 5.9 4.0-6.0 % Estimated Average Glucose (eAG) 123 70-126 mg/dL Total Creatine Kinase 161 21-232 U/L Troponin I High Sensitivity 9.8 4-50 ng/L C-Reactive Protein, Quantitative 1.90 0.5-3.0 mg/L B-Type Natriuretic Peptide 18 0-100 pg/mL Procalcitonin 0.05 0.05-0.5 ng/mL Thyroid Stimulating Hormone (TSH) 0.78 0.36-3.74 uIU/mL Uric Acid 4.3 2.6-7.2 mg/dL Coagulation Labs: Test 01/31/24 09:52 Range/Units Prothrombin Time 9.7 9.6-11.6 SEC Prothromb Time International Ratio <= 0.93 0.85-1.15 Activated Partial Thromboplast Time 25.6 L 26.3-35.5 SEC Fibrinogen 524 *H 180-350 mg/dL DIAGNOSTICS / RADIOLOGY RESULTS: [ ]IMAGING REPORT Signed PATIENT: LAUREL OLIVA MR#: [id number] : 2005 SEX: F AGE: 18 LOCATION: MERGED WITH [facility] ORDER [id number] STATUS: ADM IN REPORT#: [id number] SERVICE 1026 REASON: RULE OUT INDUCED CARDIOMYOPATHY ORDERING PHYSICIAN: CARMEN CARDENAS PROCEDURE: ECHO CMP - ECHO 2-D COMPLETE APPROVED REPORT EXAM: Two-dimensional and M-mode echocardiogram with Doppler and color Doppler. INDICATION ICD: Rule out induced cardiomyopathy 2D Dimensions RVDd 4.2 cm LVEF(%) 59.0 (>50%) LVED Vol(simp.) 98.9 mL IVSd 0.7 (0.7-1.1cm) FS(%) 31 % LVES Vol(simp.) 30.9 mL LVDd 3.9 (3.8-5.6cm) LA (2D) 3.2 (1.6-4.0cm) LVEF(%, simp.) 69 % PWd 0.9 (0.7-1.1cm) Ao Root(2D) 2.3 (2.0-3.7cm) IVSs 1.1 cm LVOT diam 1.8 (1.8-2.4cm) LVDs 2.7 (2.5-4.0cm) PWs 1.4 cm Deformation Strain Apical 4 29.0 % Apical 2 26.0 % Apical 3 22.0 % Global Strain 26.0 % M-Mode Dimensions EPSS 0.6 cm LA (MM) 3.2 (1.6-4.0cm) Ao Root(MM) 2.2 (2.0-3.7cm) Aortic Valve AoV VTI 0.4 m Ao Mean GR 7.0 mmHg LVOT VTI 0.28 m ELIZABETH (VMAX) 2.0 cm2 ELIZABETH (VTI) 2.0 cm2 Mitral Valve MV E Vmax 122.7 cm/s DECEL Time 197 ms MV A Vmax 73.2 cm/s P 1/2 T 66 ms E/A ratio 1.7 MVA (PHT) 3.3 cm2 TDI E/E' Medial 13.8 E/E' Lateral 9.6 Medial E' Peak V 8.90 cm/s Lateral E' Peak V 12.80 cm/s Tricuspid Valve TR Vmax 2.9 m/s RAP (EST) 8 mmHg RVSP 42.1 mmHg TR Peak GR 34.1 mmHg Left Ventricle The left ventricle structure and function is normal. There is normal left ventricular wall thickness. LVEF is 55-60%. The left ventricular diastolic function is normal. Right Ventricle The right ventricle is normal size. The right ventricular systolic function is normal. Atria The left atrium size is normal. The right atrium size is normal. Aortic Valve The aortic valve is normal in structure and function. No aortic regurgitation is present. There is no aortic valvular stenosis. Mitral Valve The mitral valve is normal in structure and function. There is no mitral valve regurgitation noted. There is no mitral valve stenosis. Tricuspid Valve The tricuspid valve is normal in structure and function. There is mild tricuspid valve regurgitation noted. Pulmonic Valve The pulmonary valve is normal in structure and function. There is trivial pulmonic valvular regurgitation. Great Vessels The aortic root is normal in size. IVC is not visualized. Pericardium No pericardial effusion. Other Information Quality : Excellent Conclusion The left ventricle structure and function is normal. LVEF is 55-60%. The left ventricular diastolic function is normal. The right ventricle is normal size. The right ventricular systolic function is normal. The left atrium size is normal. The right atrium size is normal. There is mild tricuspid valve regurgitation noted. No pericardial effusion. DICTATED BY: JOSE LUIS WILKES MD DATE: 01/31/24 1114 ELECTRONICALLY SIGNED BY: JOSE LUIS WILKES MD DATE: 01/31/24 2095 PLAN NEURO: Minimize central acting medications as possible. Maintain fall precautions, adequate lighting during the day PULMONARY: Supplemental 02 as needed. Maintain aspiration precautions at all times CARDIOVASCULAR: Follow hemodynamics. Vital signs per facility protocol GI & NUTRITION: Continue with nutritional support. Continue stool softeners and laxatives as needed. KIDNEYS & ELECTROLYTES: Strict monitoring of intake, output and overall fluid balance. Avoid nephrotoxic medications to the extent possible. Medications to be dosed according to renal function. Monitor electrolytes and replace as needed ENDOCRINE: Maintain blood glucose between 100-180 at all times. Hypoglycemia protocol in place INFECTIOUS DISEASE: Trend temperature, WBC and procalcitonin level Follow cultures, deescalate antibiotics as soon as possible. Panculture if new onset fever ONCOLOGY/HEMATOLOGY/COAGULATION: Monitor for s/s of bleeding Monitor hemoglobin, coagulation studies as needed SKIN: Pressure ulcer prevention per facility protocol Specialty mattress ORTHO/REHAB: Continue PT/OT Prophylaxis: Continue GI and DVT prophylaxis Code Status: Full Resuscitation Disposition: TBD Other: Total patient care time exceeds 35 minutes excluding all procedures. CARMEN CARDENAS [facility] Feb 01, 2024 15:23
--- NOTE | 2024-02-01 18:02 | CONS ---
DATE OF SERVICE: 02/01/2024. INFECTIOUS DISEASE CONSULTATION NOTE REQUESTING PHYSICIAN: Dr. Renny Hassan. REASON FOR CONSULTATION: Antibiotic management. HISTORY OF PRESENT ILLNESS: A 18-year-old female who is 36 weeks , presented to the hospital with dysuria and urinary frequency. The patient also complained of intermittent contractions. The patient was admitted for observation. The patient complained of dysuria and urinary frequency. She was given Rocephin to which she developed allergic reaction with shortness of breath. She was given steroids, transferred to ICU. The patient has no fever or chills. The patient at present has been placed on clindamycin and aztreonam. Urinalysis was positive, but urine cultures shows mixed christian. No cough, no chest pain, no palpitation or orthopnea. The patient also found with elevated WBC and elevated lactic acid. PAST MEDICAL HISTORY: None. PAST SURGICAL HISTORY: None. ALLERGIES: PENICILLIN. CURRENT MEDICATIONS: Include: * Aztreonam. * Magnesium sulfate. * Tylenol. * Clindamycin. * Zofran. SOCIAL HISTORY: No alcohol, tobacco or illicit drug use. FAMILY HISTORY: Noncontributory. REVIEW OF SYSTEMS: Greater than 10 systems were reviewed, negative except as documented above. PHYSICAL EXAMINATION: GENERAL: Young female, awake. VITAL SIGNS: Temperature 98.6, pulse 106, respiratory rate 18, and BP 110/45. EYES: No icterus. Pupils equal and reactive. HENT: No oral thrush seen. Moist oral mucosa. NECK: Supple, no JVD or thyromegaly. LUNGS: Good air entry. No rales, no rhonchi. CARDIOVASCULAR: S1, S2 regular, tachycardic. No murmur heard. ABDOMEN: Distended with . Nontender. CENTRAL NERVOUS SYSTEM: Awake, alert, and oriented x 3. No focal deficits. SKIN: No rashes, no itchiness. LYMPHATIC: No peripheral lymphadenopathy. BACK: No deformity, no pressure ulcer. LABORATORY DATA: Sodium 140, potassium 4.0, BUN 6, and creatinine 0.5. WBC 13.5, hemoglobin 10.0, and platelet 101,000. Blood culture, no growth for one day. Urine culture showed mixed christian. RADIOLOGY: Chest x-ray shows prominent interstitial marking. ASSESSMENT: A 18-year-old female admitted with fever. CURRENT PROBLEMS: Include: * Urinary tract infection. * Possible allergic reaction to ceftriaxone. * Transient hypoxic respiratory failure, which resolved. * Leukocytosis. * Normal state. PLAN: * Continue aztreonam. * Discontinue clindamycin. * Follow up cultures. * Continue oxygen as needed. * Continue nutritional support. * Continue antiemetic. * Avoid iatrogenic medication. Thank you for allowing me to participate in the care of this patient. TID: [id number] RECEIPT: [id number] MTDD
--- NOTE | 2024-02-01 18:32 | PN ---
[facility] PROGRESS NOTE Date of Service: Feb 01, 2024 Time of Service: 18:29 SUBJECTIVE: 01/31 - patient seen at bedside, no acute events overnight. Her symptoms have resolved after she got steroid therapy and racemic epinephrine. The patient likely had anaphylactic reaction to Rocephin, at bedside she is saturating well on room air in no acute distress and asymptomatic. She was evaluated by Infectious Disease who recommended discharge with no further antibiotics as her urine cultures were contaminated with no real UTI noted. All for her cultures are no growth to date. OBGYN evaluated the patient also is recommending discharge today. Upon my evaluation she is medically clear for discharge, we will follow up with her if she remains in-house. Magnesium was elevated however the patient was started on magnesium drip per OBGYN which has been discontinued. Vitals and labs are otherwise relatively unremarkable. REVIEW OF SYSTEMS: Thorough review of system could not be elicited due to labored breathing, patient reports having acute shortness of breath with no associated wheezing, rhonchi, stridor. Denies chest pain or focal neurologic symptoms. PHYSICAL EXAM GENERAL APPEARANCE: The patient is awake, patient is tachypneic and is in moderate respiratory distress. No obvious skin rash noted NEUROLOGICAL: Cranial nerves II-XII grossly intact. Motor is 5/5 in bilateral upper and lower extremities proximal to distal. No sensory deficits. HEENT: Face is symmetric. Pupils are equal and reactive. Extraocular movements are intact. NECK: Supple. No JVD. No thyromegaly. No submental, submandibular, pre- /postauricular, occipital or supraclavicular lymphadenopathy. CHEST: Normal chest expansion. No Telemetry. LUNGS: Absence of any rales, rhonchi or any wheezing. No stridor CARDIOVASCULAR: Regular. S1 and S2 normal. tachycardic with heart rate in the 120's ABDOMEN: Soft, nontender, and nondistended. There is no rebound, voluntary guarding, or rigidity. : Deferred. No Acevedo. EXTREMITIES: Non-edematous and not cyanotic. No clubbing. Good capillary refill. SKIN: No skin breakdown. LABS: Laboratory: Test 02/01/24 06:49 01/31/24 19:10 01/31/24 14:50 01/31/24 10:34 Range/Units White Blood Count 13.5 H 4.8-10.8 K/uL Red Blood Count 3.43 L 4.00-5.50 MIL/uL Hemoglobin 10.0 L 12.0-16.0 g/dL Hematocrit 31.1 L 36-48 % Mean Corpuscular Volume 90.7 80-100 fL Mean Corpuscular Hemoglobin 29.2 27.0-33.0 pg Mean Corpuscular Hemoglobin Concent 32.2 32.0-36.0 g/dL Red Cell Distribution Width 13.6 11.0-15.5 % Platelet Count 201 130-400 K/uL Mean Platelet Volume 10.6 H 7.5-10.5 fL Immature Granulocyte % (Auto) 1.3 H 0-1 % Neutrophils (%) (Auto) 87.5 H 40.0-77.0 % Lymphocytes (%) (Auto) 6.8 L 21.0-51.0 % Monocytes (%) (Auto) 4.2 3.0-13.0 % Eosinophils (%) (Auto) 0.1 0.0-8.0 % Basophils (%) (Auto) 0.1 0.0-5.0 % Neutrophils # (Auto) 11.8 H 1.8-7.7 K/uL Lymphocytes # (Auto) 0.9 L 1.0-4.8 K/uL Monocytes # (Auto) 0.6 0.1-1.0 K/uL Eosinophils # (Auto) 0.01 0.00-0.70 K/uL Basophils # (Auto) 0.01 0.00-0.20 K/uL Absolute Immature Granulocyte (auto 0.17 0-1 K/uL Nucleated Red Blood Cells 0.0 0.0-0.19 % Sodium Level 140 136-145 mmol/L Potassium Level 4.0 3.5-5.1 mmol/L Chloride Level 106 101-111 mmol/L Carbon Dioxide Level 19 L 21-32 mmol/L Blood Urea Nitrogen 6 L 7-18 mg/dL Creatinine 0.5 0.5-1.0 mg/dL Glomerular Filtration Rate Calc 138 >90 mL/min Random Glucose 111 H 70-105 mg/dL Total Calcium 8.2 L 8.5-10.1 mg/dL Magnesium Level 5.50 #*H 1.80-2.40 mg/dL Total Bilirubin 0.3 0.2-1.0 mg/dL Aspartate Amino Transf (AST/SGOT) 23 10-37 U/L Alanine Aminotransferase (ALT/SGPT) 22 # 12-78 U/L Alkaline Phosphatase 218 H 50-136 U/L Total Protein 6.4 6.0-8.3 g/dL Albumin 2.7 L 3.5-5.0 g/dL Lactic Acid Level 2.0 0.8-2.5 mmol/L Influenza Type A Antigen Negative For Type A NEGATIVE Influenza Type B Antigen Negative For Type B NEGATIVE SARS-CoV-2 Antigen (Rapid) PRESUMPTIVE NEGATIVE NEGATIVE Group A Streptococcus Rapid positive *A NEGATIVE Erythrocyte Sedimentation Rate 45 H 0-20 MM/HR Hemoglobin A1c 5.9 4.0-6.0 % Estimated Average Glucose (eAG) 123 70-126 mg/dL Total Creatine Kinase 161 21-232 U/L Troponin I High Sensitivity 9.8 4-50 ng/L C-Reactive Protein, Quantitative 1.90 0.5-3.0 mg/L B-Type Natriuretic Peptide 18 0-100 pg/mL Procalcitonin 0.05 0.05-0.5 ng/mL Thyroid Stimulating Hormone (TSH) 0.78 0.36-3.74 uIU/mL Test 01/31/24 10:31 01/31/24 09:52 01/31/24 02:00 Range/Units Blood Gas Specimen Type Arterial Arterial Blood pH 7.386 7.350-7.450 Arterial Blood Partial Pressure CO2 32 32-45 mmHg Arterial Blood Partial Pressure O2 80.8 L 83.0-108.0 mmHg Arterial Blood HCO3 18.8 L 21.0-28.0 mmol/L Arterial Blood Oxygen Saturation 95.3 94.0-98.0 % Arterial Blood Base Excess -5.3 L -2.0-3.0 mmol/L Hemoglobin (Blood Gas) 11.6 L 12.0-16.0 g/dL Sodium (Blood Gas) 137 136-145 MMOL/L Bedside Potassium (Blood Gas) 4.2 3.4-4.5 MMOL/L Bedside Chloride (Blood Gas) 105 98-107 MMOL/L Bedside Glucose (Blood Gas) 115 H 65-95 MG/DL Bedside Ionized Calcium (Blood Gas) 1.24 1.15-1.33 MMOL/L Bedside Lactic Acid (Blood Gas) 3.36 *H 0.36-0.75 MMOL/L Blood Gas Temperature 37.0 35.5-37.0 CELSIUS Blood Gas Flow-by 15.00 0.00-15.00 L/min Blood Gas Vent Mode NRM ROOM AIR FiO2 100.0 % Blood Gas Specimen Comment RR,[employer] White Cell Morphology Comment See comments Prothrombin Time 9.7 9.6-11.6 SEC Prothromb Time International Ratio <= 0.93 0.85-1.15 Activated Partial Thromboplast Time 25.6 L 26.3-35.5 SEC Fibrinogen 524 *H 180-350 mg/dL Uric Acid 4.3 2.6-7.2 mg/dL Hepatitis B Surface Antigen. Non-Reactive Nonreactive HIV (1&2) Antibody Non-Reactive Negative HIV P24 Antigen, Qualitative Non-Reactive Negative Urine Color YELLOW YELLOW Urine Appearance CLEAR CLEAR Urine pH 6.5 5.0-8.0 Urine Specific Mica 1.029 1.001-1.031 Urine Protein 30 H NEGATIVE mg/dL Urine Glucose (UA) NEGATIVE NEGATIVE mg/dL Urine Ketones NEGATIVE NEGATIVE mg/dL Urine Occult Blood NEGATIVE NEGATIVE Urine Nitrate NEGATIVE NEGATIVE Urine Bilirubin NEGATIVE NEGATIVE mg/dL Urine Urobilinogen >=8.0 H 0.2-1.0 mg/dL Urine Leukocyte Esterase NEGATIVE NEGATIVE Chin/uL Urine RBC 2-5 H 0-1 /HPF Urine WBC 2-5 H 0-1 /HPF Urine Squamous Epithelial Cells MOD 0-2 /HPF Urine Bacteria None None Seen /HPF Urine Opiates Screen NEGATIVE NEGATIVE Urine Barbiturates Screen NEGATIVE NEGATIVE Urine Phencyclidine Screen NEGATIVE NEGATIVE Urine Amphetamines Screen NEGATIVE NEGATIVE Urine Benzodiazepines Screen NEGATIVE NEGATIVE Urine Cocaine Screen NEGATIVE NEGATIVE Urine Marijuana (THC) Screen NEGATIVE NEGATIVE Current Medications Medications (Trade) Dose Ordered Sig/Adan Route PRN Reason Start Time Stop Time Status Last Admin Dose Admin Acetaminophen (TYLenol 325MG TAB) 650 mg Q6H PRN PO MILD PAIN (1-3) 01/31/24 11:00 02/01/24 18:22 DC Albuterol (DUOneb) 1 udvial Q6H PRN IH SHORTNESS OF BREATH 01/31/24 11:00 02/01/24 18:22 DC Ampicillin Sodium 50 ml @ 100 mls/hr Q4H IV 01/31/24 13:30 01/31/24 10:40 DC Aztreonam (Azactam) 2 gm Q8H IVPB 01/31/24 11:00 01/31/24 19:07 DC 01/31/24 15:21 2 GM Aztreonam (Azactam) 2 gm Q8H IVPB 01/31/24 23:00 02/01/24 18:22 DC 02/01/24 07:19 2 GM Betamethasone Acet/Betameth SodPhos (Celestone) 12 mg Q24H IM 01/31/24 03:00 01/31/24 14:34 DC 01/31/24 02:59 12 MG Betamethasone Acet/Betameth SodPhos (Celestone) 12 mg Q24H IM 02/01/24 03:00 02/01/24 18:22 DC 02/01/24 02:32 12 MG Calcium Gluconate (Calcium Gluc 1gm Vial) 1 gm ONCE PRN IV MAGNESIUM TOCOLYSIS PROTOCOL 01/31/24 21:00 02/01/24 18:22 DC Clindamycin HCl/ Dextrose 50 ml @ 100 mls/hr Q8H IV 01/31/24 21:00 02/01/24 16:07 DC 02/01/24 14:14 100 MLS/HR Famotidine (Pepcid 20mg Vial) 20 mg BID IV 01/31/24 21:00 02/01/24 18:22 DC 02/01/24 09:44 20 MG Lactated Ringer's (Lactated Ringers 1000ml) 1,000 ml AD PRN IV HYDRATION 01/31/24 03:30 02/01/24 18:22 DC 01/31/24 21:06 1,000 ML Levofloxacin/ Dextrose 150 ml @ 100 mls/hr DAILY IV 02/01/24 09:00 01/31/24 17:28 DC Magnesium Sulfate 50 ml @ 0 mls/hr PROTOCOL PRN IV hypomagnesemia 01/31/24 16:00 02/01/24 18:22 DC 01/31/24 16:48 25 MLS/HR Magnesium Sulfate 100 ml @ 300 mls/hr ONCE IV 01/31/24 21:00 01/31/24 21:19 DC 01/31/24 21:09 300 MLS/HR Magnesium Sulfate 1,000 ml @ 0 mls/hr Q0M PRN IV MAGNESIUM SULFATE PROTOCOL 01/31/24 21:00 02/01/24 18:22 DC 01/31/24 21:30 50 MLS/HR Meperidine HCl (Demerol-Pf) 50 mg Q2H PRN IVP SEVERE PAIN (7-10) 01/31/24 20:30 02/01/24 18:22 DC Prednisone (deltaSONE/ oraSONE 20MG TAB) 20 mg DAILY PO 02/01/24 09:00 02/01/24 18:22 DC 02/01/24 15:07 20 MG Promethazine HCl (Phenergan) 25 mg Q2H PRN IM n/v 01/31/24 20:30 02/01/24 18:22 DC Sodium Chloride 1,000 ml @ 0 mls/hr Q0M IV 01/31/24 10:27 01/31/24 17:29 DC Sodium Chloride 1,000 ml @ 0 mls/hr Q0M IV 01/31/24 10:30 01/31/24 11:05 DC Sodium Chloride 1,000 ml @ 100 mls/hr Q10H IV 01/31/24 11:00 02/01/24 18:22 DC 01/31/24 20:48 100 MLS/HR Terbutaline Sulfate (BRETHine) 0.25 mg ONCE SQ 01/31/24 03:00 01/31/24 15:56 DC 01/31/24 04:31 0.25 MG DIAGNOSTICS / RADIOLOGY: [ ] ASSESSMENT: Acute hypoxemic respiratory failure, not POA Severe allergic reaction to Rocephin with concerns for impending anaphylaxis, not POA Lactic acidosis, POA Urinary tract infection, POA Concerns for developing sepsis from UTI, POA Active at 35 weeks, POA Leukocytosis, POA Normocytic anemia, POA PLAN: Patient will be transferred to ICU Patient initially received bolus of IV fluids, dexamethasone, Benadryl, and racemic epinephrine with no significant improvement of symptoms and significant respiratory distress. After receiving IV Solu-Medrol and IV Pepcid, breathing has improved significantly, no significant stridor or wheezing or urticarial rash noted for this patient and patient feels much better Patient will receive sepsis bolus of fluids with LR and maintenance IV fluids of normal saline Discussed with Infectious Disease, Dr. Handy and pharmacy, given concerns of developing UTI, we will start patient on Levaquin/aztreonam Monitor lactic acid trend closely Chest x-ray shows no focal infiltrates, we will follow up urine culture, and blood culture Monitor if patient closely in telemetry today, continue with close monitoring, continue with obstetric care by primary obstetric service Appreciate assistance of critical care on this patient All labs will be repeated in the morning, we will follow up 2D echocardiogram and venous ultrasound Disposition: Cleared for discharge from a medicine standpoint, we will continue to follow while in-house. JOHANNA OSPINA MD Feb 01, 2024 18:32
== END 2024-02-01 18:20 | disposition home or self-care (01) | DRG 831 ==
LOC: EDH 01:27 → OBSVTOIN 01:28 → LDH 01:28 → 2BH 12:26 → LDH 20:53
PROVIDERS: ADMIT Internal Medicine; ATTEND Internal Medicine
DX: O98.813 Other maternal infectious and parasitic diseases complicating pregnancy, third trimester (principal); A41.9 Sepsis, unspecified organism; J96.01 Acute respiratory failure with hypoxia; R65.20 Severe sepsis without septic shock; O23.43 Unspecified infection of urinary tract in pregnancy, third trimester; N39.0 Urinary tract infection, site not specified; E87.20 Acidosis, unspecified; O99.513 Diseases of the respiratory system complicating pregnancy, third trimester; O99.283 Endocrine, nutritional and metabolic diseases complicating pregnancy, third trimester; J02.0 Streptococcal pharyngitis; O99.013 Anemia complicating pregnancy, third trimester; T36.1X5A Adverse effect of cephalosporins and other beta-lactam antibiotics, initial encounter; Z3A.36 36 weeks gestation of pregnancy; Z88.1 Allergy status to other antibiotic agents
CPT/HCPCS: 36415; 36600; 71045; 76805; 80053; 80305; 81001; 82435; 82550; 82803; 82947; 83036; 83605; 83735; 83880; 84132; 84145; 84295; 84443; 84484; 84550; 85018; 85025; 85384; 85610; 85651; 85730; 86140; 86701; 86850; 86900; 86901; 87040; 87071; 87086; 87205; 87340; 87390; 87426; 87491; 87591; 87804; 87880; 93005; 93306; 93356; 93970; 94640; 94664; 96360; 96361; 96372; G0378; J0290; J0696; J0702; J1100; J1200; J1956; J2270; J2919; J3105; J3475; J3490; J7120